=== PATIENT | male | born 1945 | race Caucasian/White ===

== ENCOUNTER → 2016-10-14 | Outpatient (CLI) | payer MEDICARE ==
[~2016-10-14] MED LIST: ATENOLOL100 MG PO; Coumadin5 MG PO; DILTIAZEM120 MG PO; GLIPIZIDE10 MG PO; LANOXIN0.25 MG PO; LISINOPRIL/HCTZ1 TA3 PO; VITAMIN D1000 IU PO
== END | disposition home or self-care (01) ==
LOC: CT 10-10 09:00
DX: J98.4 Other disorders of lung (principal); I10 Essential (primary) hypertension; K76.0 Fatty (change of) liver, not elsewhere classified

== ENCOUNTER 2017-08-13 23:24 | Emergency (ER) | payer MEDICARE ==
[~2017-08-13] VITALS: Ht 177.8 cm; Wt 117.9 kg
[2017-08-13 23:54] LABS: HEMATOCRIT 45.3 % (42.0-52.0); HEMOGLOBIN 14.8 g/dl (14.0-18.0); MEAN CELL VOLUME 86.6 fl (80.0-94.0); MEAN CORPUSCULAR HGB 28.3 pg (27.0-31.0); MEAN CORPUSCULAR HGB CONC 32.7 g/dl (33.0-37.0); MEAN PLATELET VOLUME 10.9 fl (9.6-12.3); PLATELET COUNT AUTOMATED 224 10*3/uL (130-400); RED BLOOD COUNT 5.23 10*6/uL (4.50-5.90); RED CELL DISTRI WIDTH 13.9 % (0-14.5)
[2017-08-14 00:05] LABS: ACT PARTIAL THROMBO TIME 35.5 SECONDS (20.8-31.5); INTERNATIONAL NORM RATIO 2.5 (2.0-3.5)
[2017-08-14 00:11] LABS: ALBUMIN 3.4 gm/dl (3.1-4.5); ALKALINE PHOSPHATASE 82 U/L (45-117); BUN 23 mg/dl (7-24); CHLORIDE 103 mmol/L (98-107); CREATININE 1.85 mg/dL (0.70-1.30); LIPASE 200 U/L (73-393); POTASSIUM 4.3 mmol/L (3.5-5.1); SGOT/AST 32 IU/L (3-35); SGPT/ALT 34 U/L (12-78); SODIUM 137 mmol/L (136-145); TOTAL PROTEIN 7.8 gm/dL (6.4-8.2)
[2017-08-14 00:17] LABS: TROPONIN I < 0.015 ng/ml (<0.045)
[2017-08-14 00:22] LABS: BASOPHILS 2 % (0-1); PLATELET SUFFICIENCY NORMAL (NORMAL); TOTAL CELLS COUNTED 100 #CELLS
[2017-08-14 02:33] LABS: BILIRUBIN 1+ (NEGATIVE); BLOOD 3+ (NEGATIVE); CLARITY CLOUDY (CLEAR); COLOR YELLOW (YELLOW); GLUCOSE 1+ (NEGATIVE); KETONE TRACE (NEGATIVE); LEUKO ESTERASE NEGATIVE (NEGATIVE); NITRITE NEGATIVE (NEGATIVE); PH 5.5 (5.0-9.0); SPECIFIC GRAVITY >= 1.030 (1.005-1.030); UROBILINOGEN 0.2 E.U./dl (0.2-1.0)
[2017-08-14 02:51] LABS: RBC TNTC rbc/hpf (0-2)
== END 2017-08-14 05:57 | disposition short-term general hospital (02) ==
LOC: ED 23:24
PROVIDERS: Emergency Medicine Emergency Medical Services
DX: N20.1 Calculus of ureter (principal); Z79.899 Other long term (current) drug therapy; Z79.01 Long term (current) use of anticoagulants

== ENCOUNTER → 2017-08-23 | Outpatient (CLI) | payer MEDICARE | END | disposition home or self-care (01) | LOC: LAB 08:10 | PROVIDERS: Urology | DX: Z12.5 Encounter for screening for malignant neoplasm of prostate (principal); N20.0 Calculus of kidney; D40.0 Neoplasm of uncertain behavior of prostate ==

== ENCOUNTER → 2018-01-05 | Outpatient (CLI) | payer MEDICARE | END | disposition home or self-care (01) | LOC: US 10:42 | DX: N20.0 Calculus of kidney (principal); E11.9 Type 2 diabetes mellitus without complications; I10 Essential (primary) hypertension ==

== ENCOUNTER 2019-11-02 21:40 | Emergency (ER) | payer MEDICARE ==
[~2019-11-02] VITALS: Ht 175.2 cm; Wt 113.4 kg
[2019-11-02] MEDS ORDERED: DOXYCYCLINE100 M3 PO (22:22)
[2019-11-02] MEDS ORDERED: ANTIBIOTIC28.4 GM T (22:22)
== END 2019-11-02 22:37 | disposition home or self-care (01) ==
LOC: ED 21:40
DX: L03.116 Cellulitis of left lower limb (principal); I10 Essential (primary) hypertension; E11.9 Type 2 diabetes mellitus without complications; I48.91 Unspecified atrial fibrillation; Z79.899 Other long term (current) drug therapy; Z79.01 Long term (current) use of anticoagulants

== ENCOUNTER → 2021-10-02 | Outpatient (CLI) | payer OTHER ==
[~2021-10-02] MED LIST changes: +ALDACTONE25 MG PO; +ANTIBIOTIC28.4 GM T; +DIGOXIN125 MCG PO; +DOXYCYCLINE100 M3 PO; +ELIQUIS5 M1 PO; +LASIX40 MG PO; +LIPITOR10 MG PO; +METOPROLOL TART50 M1 PO; +POTASSIUM CHLO20 ME4 PO; +PROTONIX40 MG PO; +VITAMIN E180 M1 PO
[2021-10-02 08:19] LABS: HEMATOCRIT 39.2 % (42.0-52.0); MEAN CELL VOLUME 92.2 fl (80.0-94.0); MEAN CORPUSCULAR HGB 30.6 pg (27.0-31.0); MEAN CORPUSCULAR HGB CONC 33.2 g/dl (33.0-37.0); MEAN PLATELET VOLUME 10.7 fl (9.6-12.3); PLATELET COUNT AUTOMATED 129 10*3/uL (130-400); RED BLOOD COUNT 4.25 10*6/uL (4.50-5.90); WHITE BLOOD COUNT 9.9 10*3/uL (4.8-10.8)
[2021-10-02 08:40] LABS: MANUAL DIFF REFLEX YES
[2021-10-02 08:55] LABS: CREATININE 1.54 mg/dL (0.70-1.30); TOTAL PROTEIN 7.2 gm/dL (6.4-8.2)
[2021-10-02 08:56] LABS: BASOPHILS 2 % (0-1); PLATELET SUFFICIENCY LOW (NORMAL); POLYCHROMASIA SLIGHT; TARGET CELLS FEW; TOTAL CELLS COUNTED 100 #CELLS
== END | disposition home or self-care (01) ==
LOC: LAB 08:00
PROVIDERS: ATTEND Internal Medicine
DX: R79.89 Other specified abnormal findings of blood chemistry (principal); R53.81 Other malaise

== ENCOUNTER 2022-01-30 17:59 | Emergency (ER) | payer OTHER ==
[2022-01-30] MEDS ORDERED: Molnupiravir PO (19:24)
== END 2022-01-30 19:38 | disposition home or self-care (01) ==
LOC: ED 17:59
DX: B34.9 Viral infection, unspecified (principal)

== ENCOUNTER → 2022-03-03 | Outpatient (CLI) | payer OTHER ==
[~2022-03-03] MED LIST changes: +LACTULOSE10 GM/151 PO; +LACTULOSE20 GM/30 M PO; +LASIX20 MG PO; +Molnupiravir PO; +PROPRANOLOL HCL10 MG PO
[2022-03-03 12:41] LABS: HEMATOCRIT 40.8 % (42.0-52.0); MEAN CELL VOLUME 95.8 fl (80.0-94.0); MEAN CORPUSCULAR HGB 31.9 pg (27.0-31.0); MEAN CORPUSCULAR HGB CONC 33.3 g/dl (33.0-37.0); MEAN PLATELET VOLUME 12.3 fl (9.6-12.3); PLATELET COUNT AUTOMATED 111 10*3/uL (130-400); RED BLOOD COUNT 4.26 10*6/uL (4.50-5.90); RED CELL DISTRI WIDTH 17.1 % (0-14.5); WHITE BLOOD COUNT 11.1 10*3/uL (4.8-10.8)
[2022-03-03 12:42] LABS: MANUAL DIFF REFLEX YES
[2022-03-03 13:04] LABS: BASOPHILS 3 % (0-1); POLYCHROMASIA SLIGHT; TOTAL CELLS COUNTED 100 #CELLS
[2022-03-03 13:05] LABS: OVALOCYTES FEW; PLATELET SUFFICIENCY LOW (NORMAL); TARGET CELLS FEW
[2022-03-03 13:06] LABS: CREATININE 1.76 mg/dL (0.70-1.30); FREE T4 0.95 ng/dl (0.76-1.46); POTASSIUM 5.1 mmol/L (3.5-5.1); TOTAL PROTEIN 7.3 gm/dL (6.4-8.2)
[2022-03-03 13:11] LABS: THYROID STIM HORMONE (HS) 4.5 uIU/ml (0.358-4.75)
[2022-03-03 13:36] LABS: VITAMIN D, 25-HYDROXY 38.9 ng/mL (30-100)
== END | disposition home or self-care (01) ==
LOC: LAB 12:18
PROVIDERS: ATTEND Internal Medicine
DX: E55.9 Vitamin D deficiency, unspecified (principal); E03.9 Hypothyroidism, unspecified; R53.81 Other malaise; R79.89 Other specified abnormal findings of blood chemistry; D51.9 Vitamin B12 deficiency anemia, unspecified; D52.9 Folate deficiency anemia, unspecified; Z13.0 Encounter for screening for diseases of the blood and blood-forming organs and certain disorders involving the immune mechanism; Z13.21 Encounter for screening for nutritional disorder; Z13.220 Encounter for screening for lipoid disorders; Z13.228 Encounter for screening for other metabolic disorders; Z13.6 Encounter for screening for cardiovascular disorders; Z13.89 Encounter for screening for other disorder

== ENCOUNTER → 2022-03-13 | Outpatient (CLI) | payer OTHER | END | disposition home or self-care (01) | LOC: RESCLI 15:05 | PROVIDERS: ATTEND Student in an Organized Health Care Education/Training Program | DX: I11.0 Hypertensive heart disease with heart failure (principal); I50.9 Heart failure, unspecified; E11.9 Type 2 diabetes mellitus without complications; K74.60 Unspecified cirrhosis of liver; I48.91 Unspecified atrial fibrillation; I85.00 Esophageal varices without bleeding; E78.5 Hyperlipidemia, unspecified; E55.9 Vitamin D deficiency, unspecified; J98.4 Other disorders of lung; Z98.890 Other specified postprocedural states; Z79.01 Long term (current) use of anticoagulants; Z79.899 Other long term (current) drug therapy ==

== ENCOUNTER → 2022-03-26 | Outpatient (CLI) | payer OTHER ==
[2022-03-26 10:54] LABS: HEMATOCRIT 40.3 % (42.0-52.0); MEAN CELL VOLUME 94.6 fl (80.0-94.0); MEAN CORPUSCULAR HGB 31.2 pg (27.0-31.0); MEAN PLATELET VOLUME 10.8 fl (9.6-12.3); PLATELET COUNT AUTOMATED 129 10*3/uL (130-400); RED BLOOD COUNT 4.26 10*6/uL (4.50-5.90); RED CELL DISTRI WIDTH 16.7 % (0-14.5); WHITE BLOOD COUNT 10.9 10*3/uL (4.8-10.8)
[2022-03-26 10:55] LABS: MANUAL DIFF REFLEX YES
[2022-03-26 11:13] LABS: CREATININE 1.78 mg/dL (0.70-1.30); TOTAL PROTEIN 7.3 gm/dL (6.4-8.2)
[2022-03-26 12:03] LABS: BASOPHILS 2 % (0-1); PLATELET SUFFICIENCY LOW (NORMAL); ROULEAUX SLIGHT; TARGET CELLS FEW; TOTAL CELLS COUNTED 100 #CELLS
== END | disposition home or self-care (01) ==
LOC: CARD 00:04 → EDSTATUS 08:30
PROVIDERS: ATTEND Internal Medicine
DX: R18.8 Other ascites (principal); K74.60 Unspecified cirrhosis of liver; R93.2 Abnormal findings on diagnostic imaging of liver and biliary tract; K80.20 Calculus of gallbladder without cholecystitis without obstruction

== ENCOUNTER 2022-05-17 15:28 | Emergency (ER) | payer OTHER ==
[~2022-05-17] VITALS: Wt 86.2 kg
[~2022-05-17 15:28] MED LIST changes: +ALDACTONE100 MG PO; +LEVOFLOXACIN500 MG PO; +XIFAXAN550 MG PO
[2022-05-17 18:21] LABS: HEMATOCRIT 37.7 % (42.0-52.0); MEAN CELL VOLUME 96.7 fl (80.0-94.0); MEAN CORPUSCULAR HGB 31.8 pg (27.0-31.0); MEAN CORPUSCULAR HGB CONC 32.9 g/dl (33.0-37.0); MEAN PLATELET VOLUME 12.6 fl (9.6-12.3); PLATELET COUNT AUTOMATED 74 10*3/uL (130-400); RED CELL DISTRI WIDTH 19.8 % (0-14.5); WHITE BLOOD COUNT 11.7 10*3/uL (4.8-10.8)
[2022-05-17 18:24] LABS: MANUAL DIFF REFLEX YES
[2022-05-17 18:38] LABS: POTASSIUM 4.4 mmol/L (3.4-5.1); TOTAL PROTEIN 6.3 gm/dL (6.0-8.0)
[2022-05-17 19:22] LABS: TOTAL CELLS COUNTED 100 #CELLS
[2022-05-17 19:25] LABS: PLATELET SUFFICIENCY LOW (NORMAL)
[2022-05-17 19:26] LABS: BURR CELLS MODERATE
[2022-05-17 19:28] LABS: TARGET CELLS FEW
[2022-05-17 19:30] LABS: VACUOLATION OF NEUTROPHILS SLIGHT
== END 2022-05-17 19:46 | disposition home or self-care (01) ==
LOC: ED 15:28
PROVIDERS: Emergency Medicine
DX: K74.69 Other cirrhosis of liver (principal); R18.8 Other ascites; Z88.5 Allergy status to narcotic agent; Z88.8 Allergy status to other drugs, medicaments and biological substances; Z98.890 Other specified postprocedural states

== ENCOUNTER 2022-05-23 16:44 | Emergency (ER) | payer OTHER ==
[~2022-05-23] VITALS: Ht 172.7 cm; Wt 86.6 kg
[2022-05-23 17:36] LABS: HEMATOCRIT 32.7 % (42.0-52.0); MEAN CELL VOLUME 94.8 fl (80.0-94.0); MEAN CORPUSCULAR HGB 32.5 pg (27.0-31.0); MEAN CORPUSCULAR HGB CONC 34.3 g/dl (33.0-37.0); MEAN PLATELET VOLUME 11.6 fl (9.6-12.3); PLATELET COUNT AUTOMATED 73 10*3/uL (130-400); RED BLOOD COUNT 3.45 10*6/uL (4.50-5.90); RED CELL DISTRI WIDTH 19.7 % (0-14.5); WHITE BLOOD COUNT 10.8 10*3/uL (4.8-10.8)
[2022-05-23 17:53] LABS: ACT PARTIAL THROMBO TIME 43.5 SECONDS (20.0-32.1); INTERNATIONAL NORM RATIO 1.4 (2.0-3.5)
[2022-05-23 17:58] LABS: MANUAL DIFF REFLEX YES
[2022-05-23 18:02] LABS: POTASSIUM 3.8 mmol/L (3.4-5.1); TOTAL PROTEIN 6.5 gm/dL (6.0-8.0)
[2022-05-23 18:42] LABS: PLATELET SUFFICIENCY LOW (NORMAL); TOTAL CELLS COUNTED 100 #CELLS
[2022-05-23 18:43] LABS: OVALOCYTES FEW; TARGET CELLS FEW
[2022-05-23 18:44] LABS: MICROCYTOSIS SLIGHT
[2022-05-23] MEDS ORDERED: VIBRA-TAB100 MG PO (19:36)
== END 2022-05-23 19:42 | disposition home or self-care (01) ==
LOC: ED 16:44
PROVIDERS: Family Medicine
DX: L03.116 Cellulitis of left lower limb (principal); L03.115 Cellulitis of right lower limb

== ENCOUNTER 2022-05-30 12:46 | Inpatient (IN) | payer OTHER ==
[~2022-05-30] VITALS: Ht 172.7 cm; Wt 88.3 kg
[2022-05-30] VITALS (9 sets, daily range): BP systolic 80–105; BP diastolic 39–57
[~2022-05-30 12:46] MED LIST changes: +VIBRA-TAB100 MG PO
[2022-05-30 14:28] LABS: HEMATOCRIT 34.7 % (42.0-52.0); MEAN CORPUSCULAR HGB 31.1 pg (27.0-31.0); MEAN CORPUSCULAR HGB CONC 33.4 g/dl (33.0-37.0); MEAN PLATELET VOLUME 12.3 fl (9.6-12.3); PLATELET COUNT AUTOMATED 76 10*3/uL (130-400); RED BLOOD COUNT 3.73 10*6/uL (4.50-5.90); RED CELL DISTRI WIDTH 19.6 % (0-14.5); WHITE BLOOD COUNT 14.2 10*3/uL (4.8-10.8)
[2022-05-30 14:29] LABS: MANUAL DIFF REFLEX YES
[2022-05-30 14:42] LABS: ACT PARTIAL THROMBO TIME 46.4 SECONDS (20.0-32.1); INTERNATIONAL NORM RATIO 1.5 (2.0-3.5)
[2022-05-30 14:45] LABS: POTASSIUM 4.3 mmol/L (3.4-5.1); TOTAL PROTEIN 6.6 gm/dL (6.0-8.0)
[2022-05-30 15:14] LABS: PLATELET SUFFICIENCY LOW (NORMAL); TOTAL CELLS COUNTED 100 #CELLS
[2022-05-30] MEDS ORDERED: ZINC50 M5 PO (20:33)
[2022-05-30] MEDS ORDERED: LACTULOSE10 GM/151 PO (20:35)
[2022-05-30] MEDS ORDERED: LANTUS SOL100 UNIT/1 SC (21:10)
[2022-05-31] VITALS: BP 101/53; BP 110/61
[2022-05-31 02:49] LABS: BILIRUBIN Negative (Negative); BLOOD Negative (Negative); CLARITY Clear (Clear); COLOR Yellow (Yellow); GLUCOSE Negative (Negative); KETONE Negative (Negative); LEUKO ESTERASE Negative (Negative); NITRITE Negative (Negative); UROBILINOGEN 0.2 E.U./dl (0.0-1.0)
[2022-05-31 02:53] VITALS: BP 101/52
[2022-05-31 03:01] LABS: MUCOUS 1+
[2022-05-31 06:12] LABS: POTASSIUM 4.1 mmol/L (3.4-5.1)
[2022-05-31 08:00] VITALS: BP 108/57
[2022-05-31 12:00] VITALS: BP 110/60
[2022-05-31 16:00] VITALS: BP 110/62
[2022-05-31 20:00] VITALS: BP 112/62
[2022-06-01] VITALS: BP 116/91
[2022-06-01 06:28] LABS: HEMATOCRIT 29.6 % (42.0-52.0); MEAN CELL VOLUME 90.8 fl (80.0-94.0); MEAN CORPUSCULAR HGB 31.3 pg (27.0-31.0); MEAN CORPUSCULAR HGB CONC 34.5 g/dl (33.0-37.0); MEAN PLATELET VOLUME 12.7 fl (9.6-12.3); NUCLEATED RED BLOOD CELL 0.1 % (0.0-0.0); PLATELET COUNT AUTOMATED 77 10*3/uL (130-400); RED BLOOD COUNT 3.26 10*6/uL (4.50-5.90); RED CELL DISTRI WIDTH 19.4 % (0-14.5); WHITE BLOOD COUNT 13.9 10*3/uL (4.8-10.8)
[2022-06-01 06:36] LABS: MANUAL DIFF REFLEX YES
[2022-06-01 06:37] LABS: POTASSIUM 4.5 mmol/L (3.4-5.1)
[2022-06-01 08:00] VITALS: BP 103/50
[2022-06-01 08:20] LABS: BASOPHILS 1 % (0-1); PLATELET SUFFICIENCY LOW (NORMAL); POLYCHROMASIA SLIGHT; TARGET CELLS MODERATE; TOTAL CELLS COUNTED 100 #CELLS
[2022-06-01 08:21] LABS: OVALOCYTES FEW
[2022-06-01 12:00] VITALS: BP 112/51
[2022-06-01 16:00] VITALS: BP 109/51
[2022-06-01 18:53] LABS: URINE CREATININE RANDOM 118.52 mg/dL
[2022-06-01 20:00] VITALS: BP 116/61
[2022-06-02] VITALS: BP 95/43
[2022-06-02 06:03] LABS: POTASSIUM 5.3 mmol/L (3.4-5.1)
[2022-06-02 06:28] LABS: HEMATOCRIT 30.5 % (42.0-52.0); MEAN CELL VOLUME 93.6 fl (80.0-94.0); MEAN CORPUSCULAR HGB 31.3 pg (27.0-31.0); MEAN CORPUSCULAR HGB CONC 33.4 g/dl (33.0-37.0); MEAN PLATELET VOLUME 12.9 fl (9.6-12.3); NUCLEATED RED BLOOD CELL 0.1 % (0.0-0.0); PLATELET COUNT AUTOMATED 81 10*3/uL (130-400); RED BLOOD COUNT 3.26 10*6/uL (4.50-5.90); RED CELL DISTRI WIDTH 19.7 % (0-14.5); WHITE BLOOD COUNT 13.7 10*3/uL (4.8-10.8)
[2022-06-02 06:32] LABS: MANUAL DIFF REFLEX YES
[2022-06-02 08:00] VITALS: BP 103/54
[2022-06-02 08:19] LABS: ATYPICAL LYMPHS 2 % (0-0); PLATELET SUFFICIENCY LOW (NORMAL); TARGET CELLS FEW; TOTAL CELLS COUNTED 100 #CELLS
[2022-06-02 12:00] VITALS: BP 105/51
[2022-06-02 16:00] VITALS: BP 93/46
[2022-06-02 20:00] VITALS: BP 104/57
[2022-06-03] VITALS: BP 105/45
[2022-06-03 06:54] LABS: HEMATOCRIT 29.3 % (42.0-52.0); MEAN CELL VOLUME 92.7 fl (80.0-94.0); MEAN CORPUSCULAR HGB CONC 34.5 g/dl (33.0-37.0); MEAN PLATELET VOLUME 12.4 fl (9.6-12.3); NUCLEATED RED BLOOD CELL 0.2 % (0.0-0.0); PLATELET COUNT AUTOMATED 71 10*3/uL (130-400); RED BLOOD COUNT 3.16 10*6/uL (4.50-5.90); RED CELL DISTRI WIDTH 19.7 % (0-14.5); WHITE BLOOD COUNT 11.9 10*3/uL (4.8-10.8)
[2022-06-03 06:57] LABS: MANUAL DIFF REFLEX YES
[2022-06-03 07:34] LABS: POTASSIUM 4.7 mmol/L (3.4-5.1)
[2022-06-03 08:00] VITALS: BP 103/41
[2022-06-03 08:35] LABS: BASOPHILS 1 % (0-1); PLATELET SUFFICIENCY LOW (NORMAL); STOMATOCYTE MODERATE; TOTAL CELLS COUNTED 100 #CELLS
[2022-06-03 12:00] VITALS: BP 100/56
[2022-06-03 14:16] VITALS: BP 99/53
[2022-06-03 15:47] VITALS: BP 107/53
[2022-06-03 20:00] VITALS: BP 102/48
[2022-06-04] VITALS: BP 111/42
[2022-06-04 08:00] VITALS: BP 84/62
[2022-06-04] MEDS ORDERED: LACTULOSE20 GM/30 M PO (10:06)
[2022-06-04] MEDS ORDERED: NOVOLIN R100 UNIT/1 SQ (10:18)
[2022-06-04] MEDS ORDERED: METOCLOPRAMIDE H5 M1 PO (10:18)
== END 2022-06-04 11:00 | disposition home health service (06) | DRG 640 ==
LOC: ED 12:46 → 4E 15:15 → EDHOLD 15:15 → 4E 16:56
PROVIDERS: Emergency Medicine; Internal Medicine Nephrology; ADMIT Internal Medicine; ATTEND Internal Medicine
DX: E86.0 Dehydration (principal); E43 Unspecified severe protein-calorie malnutrition; N17.0 Acute kidney failure with tubular necrosis; I48.21 Permanent atrial fibrillation; I50.32 Chronic diastolic (congestive) heart failure; K76.6 Portal hypertension; I85.10 Secondary esophageal varices without bleeding; N18.4 Chronic kidney disease, stage 4 (severe); K76.82 Hepatic encephalopathy; K74.60 Unspecified cirrhosis of liver; K75.81 Nonalcoholic steatohepatitis (NASH); R62.7 Adult failure to thrive; E11.22 Type 2 diabetes mellitus with diabetic chronic kidney disease; K21.00 Gastro-esophageal reflux disease with esophagitis, without bleeding; E78.2 Mixed hyperlipidemia; Z79.01 Long term (current) use of anticoagulants; Z88.6 Allergy status to analgesic agent; Z88.8 Allergy status to other drugs, medicaments and biological substances; Z82.49 Family history of ischemic heart disease and other diseases of the circulatory system; Z68.29 Body mass index [BMI] 29.0-29.9, adult

== ENCOUNTER → 2022-06-24 | Outpatient (CLI) | payer OTHER ==
[~2022-06-24] MED LIST changes: +CEFUROXIME AXE250 MG PO; +ELIQUIS2.5 M1 PO; +HYDROXYZINE HCL25 MG PO; +KRISTALOSE20 GM PO; +LANTUS SOL100 UNIT/1 SC; +METOCLOPRAMIDE H5 M1 PO; +NOVOLIN R100 UNIT/1 SQ; +Ondansetron4 MG PO; +XIFAXAN200 M1 PO; +ZINC50 M5 PO
[2022-06-24 15:27] LABS: HEMATOCRIT 29.2 % (42.0-52.0); MEAN CELL VOLUME 91.5 fl (80.0-94.0); MEAN CORPUSCULAR HGB 31.3 pg (27.0-31.0); MEAN CORPUSCULAR HGB CONC 34.2 g/dl (33.0-37.0); MEAN PLATELET VOLUME 11.8 fl (9.6-12.3); NUCLEATED RED BLOOD CELL 0.1 % (0.0-0.0); PLATELET COUNT AUTOMATED 93 10*3/uL (130-400); RED BLOOD COUNT 3.19 10*6/uL (4.50-5.90); WHITE BLOOD COUNT 14.1 10*3/uL (4.8-10.8)
[2022-06-24 15:35] LABS: MANUAL DIFF REFLEX YES
[2022-06-24 15:41] LABS: POTASSIUM 3.6 mmol/L (3.4-5.1); TOTAL PROTEIN 6.7 gm/dL (6.0-8.0)
[2022-06-24 16:35] LABS: ATYPICAL LYMPHS 5 % (0-0); BASOPHILS 2 % (0-1); TOTAL CELLS COUNTED 100 #CELLS
[2022-06-24 16:36] LABS: PLATELET SUFFICIENCY LOW (NORMAL)
[2022-06-24 16:37] LABS: MICROCYTOSIS MODERATE; ROULEAUX SLIGHT; TARGET CELLS FEW
[2022-06-24 16:38] LABS: OVALOCYTES FEW
== END | disposition home or self-care (01) ==
LOC: LAB 14:45
PROVIDERS: ATTEND Internal Medicine
DX: R79.89 Other specified abnormal findings of blood chemistry (principal); E78.00 Pure hypercholesterolemia, unspecified; R53.81 Other malaise; Z13.89 Encounter for screening for other disorder